=== PATIENT | male | born 1965 | race Caucasian/White ===

== ENCOUNTER 2022-03-19 12:20 | Outpatient (CLI) | payer OTHER, SELFPAY ==
--- NOTE | ~2022-03-19 | MR_ITS ---
EXAMINATION: MR cervical spine wo con DATE: 03/19/2022 12:59 INDICATION: Neck pain. TECHNIQUE: Magnetic resonance imaging (MRI) of the cervical spine was performed without intravenous c ontrast. Sequences included sagittal T2-weighted FSE, sagittal T2-weighted FS FSE, sagittal T1-weight ed FSE, axial MERGE, and axial T2-weighted FSE. COMPARISON: None FINDINGS: There is 4 degrees levocurvature of cervical spine. Vertebral body heights are normal. Ther e is mildly decreased disc height at C3-C4 and moderately decreased disc height at C4-C5 and C5-C6. T he spinal cord signal intensity is normal. The following disc levels are specifically discussed: C2-C3: The disc does not extend beyond the endplate margin. There is no uncovertebral joint osteoarth ritis. There is no facet joint osteoarthritis. There is no neural foraminal stenosis. There is no sally tral canal stenosis. C3-C4: There is a right central extrusion. There is mild bilateral uncovertebral joint osteoarthritis . There is mild bilateral facet joint osteoarthritis. There is mild bilateral neural foraminal stenos is. There is mild central canal stenosis with ventral indentation of the spinal cord. C4-C5: The disc is bulging. There is severe right and mild left uncovertebral joint osteoarthritis. T here is mild bilateral facet joint osteoarthritis. There is moderate right and mild left neural geraldine inal stenosis. There is mild central canal stenosis. C5-C6: The disc is bulging. There is severe bilateral uncovertebral joint osteoarthritis. There is mo derate right and mild left facet joint osteoarthritis. There is moderate bilateral neural foraminal s tenosis. There is mild central canal stenosis with ventral indentation of the spinal cord. C6-C7: There is a left central protrusion. There is no uncovertebral joint osteoarthritis. There is m ild bilateral facet joint osteoarthritis. There is no neural foraminal stenosis. There is mild centra l canal stenosis. C7-T1: The disc does not extend beyond the endplate margin. There is no uncovertebral joint osteoarth ritis. There is moderate bilateral facet joint osteoarthritis. There is mild bilateral neural foramin al stenosis. There is no central canal stenosis. IMPRESSION: 1. Moderate cervical spondylosis. Reviewed, dictated and finalized at location A.
== END 2022-03-19 12:21 | disposition home or self-care (01) ==
LOC: ANHIMG 12:23
PROVIDERS: PCP Family Medicine; Visit Provider Nurse Practitioner
DX: R20.2 Paresthesia of skin (principal); M47.892 Other spondylosis, cervical region
CPT/HCPCS: 72141

== ENCOUNTER 2023-08-28 01:30 | Day surgery (SDC) | payer OTHER, SELFPAY ==
[2023-08-14 15:01] VITALS: BMI 23.1
--- NOTE | 2023-08-24 10:29 | SUR.PREOP ---
Patient called regarding upcoming procedure. Reviewed preop instructions, appointment times, and procedure prep.
[2023-08-28 11:46] VITALS: BP 145/92; PULSE 67; RESP 17; TEMP 36.4; O2SAT 100; BMI 23.6
[2023-08-28] MEDS: LACTATED RINGERS 1,000 ML 150 ML IV CONT (11:52)
--- NOTE | 2023-08-28 12:57 | PM.HPGS ---
History of Present Illness History of Present Illness Consent: Risks, benefits, and alternatives have been discussed and questions answered. Patient agrees to proceed with procedure. Chief complaint: other fecal abnormalities Narrative: Dc Nolen is a 58 year old male here for first colonoscopy, had + cologuard Review of Systems Constitutional: Constitutional: Denies headache(s) and Denies weakness Eyes: Eyes: Denies blurry vision ENT: Reports Normal hearing present, Denies headache(s) and Denies neck pain Cardiovascular: Cardiovascular: Denies chest pain and Denies dyspnea Respiratory: Respiratory: Denies dyspnea Gastrointestinal: Gastrointestinal: Reports no additional gastrointestinal complaints Genitourinary: Genitourinary: Denies dysuria Musculoskeletal: Musculoskeletal: Denies neck pain Integumentary/Breasts: Skin/Breast: Denies dry skin Neurologic: Reports Normal hearing present, Denies headache(s) and Denies weakness Psychiatric: Psychiatric: Denies anxiety Endocrine: Endocrine: Denies change in body appearance Hematologic/Lymphatic: Hematologic/Lymphatic: Denies easy bleeding Allergic/Immunologic: Allergic/Immunologic: Denies urticaria PMFSH Past Medical History Medical History Dyslipidemia (~1999) Essential hypertension (~1999) GERD without esophagitis History of renal calculi Impacted ear wax PAF (paroxysmal atrial fibrillation) (~07/2019) Rosacea Surgical History Surgical History H/O cardiac radiofrequency ablation (~08/2022) History of wisdom tooth extraction (~1990) Family History Family History Mother Hypertension Patient's mother is in good health Family history of elevated blood lipids Family history of atrial fibrillation Father Acute myocardial infarction, Onset Age: 87 Family history of cardiovascular disease Family history of Alzheimer's disease Sibling Acute myocardial infarction, Onset Age: 49 Social History Social History Social History: Caffeine-none Smoking status: Never smoker Alcohol intake: never Substance use: never Substance use type: does not use Living arrangements: with family Additional living arrangements comments: Occupation/Education: occupation 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 Gender identity (if verbalized by the patient): Male Sexual Orientation (if Verbalized by the Patient): Straight or Heterosexual Spiritual care concerns: No Meds Home Medications and Allergies Home Medications Medication Instructions Recorded Confirmed Type multivitamin 1 cap PO DAILY 11/25/19 08/28/23 History omega-3 fatty acids 1,000 mg 2,000 mg PO DAILY 12/03/20 08/28/23 History capsule (Fish Oil Concentrate) dofetilide 500 mcg capsule 500 mcg PO Q12H 06/26/22 08/28/23 History lisinopril 40 mg tablet 40 mg PO DAILY #90 tabs 02/12/23 08/28/23 Rx aspirin 325 mg tablet 325 mg PO DAILY 07/02/23 08/28/23 History famotidine 20 mg tablet 20 mg PO DAILY 07/02/23 08/28/23 History metronidazole 1 % topical gel 1 applic topical BID 07/02/23 08/28/23 History ezetimibe 10 mg-simvastatin 20 mg 1 tablet PO DAILY #90 tabs 08/14/23 08/28/23 Rx tablet Allergies Allergy/AdvReac Type Severity Reaction Status Date / Time No Known Allergies Allergy Verified 08/28/23 11:44 Vital Signs Vital Signs - 24 hr 08/28/23 11:46 Temperature 97.6 F Pulse Rate 67 Respiratory Rate 17 Blood Pressure 145/92 H Pulse Oximetry 100 Oxygen Delivery Room Air Exam Const: General: comfortable and no acute distress HENMT: Face/Nose/Sinus: Normal nares present Eyes: General: appearance normal, both eyes and all related structures Neck: Neck: no JVD Resp: Auscultatio
[2023-08-28 13:23] VITALS: BP 135/78; PULSE 54; RESP 19; O2SAT 99
[2023-08-28 13:33] VITALS: BP 140/100; PULSE 48; RESP 21; O2SAT 100
[2023-08-28 13:40] VITALS: BP 148/98; PULSE 49; RESP 18; O2SAT 100
== END 2023-08-28 13:49 | disposition home or self-care (01) ==
PROVIDERS: PCP Family Medicine; Visit Provider Internal Medicine Gastroenterology
PROC: 0DJD8ZZ Inspection of Lower Intestinal Tract, Via Natural or Artificial Opening Endoscopic (ICD-10-PCS; CPT 45378; principal; 2023-08-28 13:00)
DX: R19.5 Other fecal abnormalities (principal); K57.30 Diverticulosis of large intestine without perforation or abscess without bleeding; K63.5 Polyp of colon; K64.8 Other hemorrhoids; I10 Essential (primary) hypertension; E78.5 Hyperlipidemia, unspecified; K21.9 Gastro-esophageal reflux disease without esophagitis; Z79.82 Long term (current) use of aspirin
CPT/HCPCS: 45385; 88305; J2704; J7120

== ENCOUNTER 2024-09-16 16:15 | Outpatient (CLI) | payer OTHER, SELFPAY ==
--- NOTE | ~2024-09-16 | XR_ITS ---
EXAMINATION: XR finger 3rd LT min 2V DATE: 09/16/2024 16:25 INDICATION: Distal interphalangeal joint pain at the left third digit post hip or extension TECHNIQUE: Dorsal palmar, lateral and 2 oblique views of the left third digit were obtained COMPARISON: None FINDINGS: Bone alignment is normal. No fracture. Joint spaces are normal. Soft tissues are unremarkable. IMPRESSION: 1. Normal left third digit radiographs. Reviewed, dictated and finalized at location A. CEMENTER
== END 2024-09-16 16:16 | disposition home or self-care (01) ==
LOC: GOSHIMG 16:16
PROVIDERS: PCP Family Medicine; Visit Provider Family Medicine
DX: M79.645 Pain in left finger(s) (principal)
CPT/HCPCS: 73140